=== PATIENT | male | born 1970 | race Caucasian/White ===

== ENCOUNTER 2022-03-23 11:14 | Inpatient (IN) | payer MEDICAID ==
[~2022-03-23] VITALS: Ht 175.3 cm; Wt 79.3 kg
[2022-03-23] MEDS ORDERED: PHENY100 PO (11:29)
[2022-03-23] MEDS ORDERED: CARB100 PO (11:29)
[2022-03-23] MEDS ORDERED: GABA-1216 PO (11:29)
[2022-03-23 11:48] LABS: BASOPHILS % (AUTO) 0.2 % (0.0-2.0); EOSINOPHILS % (AUTO) 0.1 % (1.0-6.0); HEMATOCRIT 39.8 % (41-53); HEMOGLOBIN 13.4 g/dL (13.5-17.5); LYMPHOCYTES # (AUTO) 0.6 K/uL (1.0-4.8); MEAN CORPUSCULAR HEMOGLOBIN 28.4 pg (26.0-34.0); MEAN CORPUSCULAR HGB CONC 33.7 G/dL (31.0-37.0); MEAN CORPUSCULAR VOLUME 84 fL (80-100); MONOCYTES # (AUTO) 0.5 K/uL (0.1-1.0); MONOCYTES % (AUTO) 4.7 % (2.0-9.0); NEUTROPHILS # (AUTO) 9.4 K/uL (1.8-7.7); PLATELET COUNT (AUTO) 211 K/uL (150-450); RED BLOOD CELL COUNT(AUTO) 4.72 MIL/uL (4.50-5.90); RED CELL DISTRIBUTION WIDTH 13.6 % (11.5-14.5)
[2022-03-23 11:59] LABS: ANION GAP 10 mmol/L (8-16); CALCIUM, TOTAL 8.4 mg/dL (8.8-10.5); CARBON DIOXIDE 27 mmol/L (22-29); CHLORIDE 98 mmol/L (98-107); CREATININE 0.93 mg/dL (0.60-1.30); GLOMERULAR FILTR. RATE CALC > 60 mL/min (>60); GLUCOSE,RANDOM 103 mg/dL (70-110); POTASSIUM 3.9 mmol/L (3.5-5.1); SODIUM SERUM 135 mmol/L (136-145); UREA NITROGEN, BLOOD 11 mg/dL (7-18)
[2022-03-23 12:04] LABS: ALANINE AMINOTRANSFERASE 31 U/L (12-78); ALBUMIN 3.7 g/dL (3.4-5.0); ALKALINE PHOSPHATASE 95 U/L (46-116); ASPARTATE AMINOTRANSFERASE 39 U/L (15-37); BILIRUBIN,TOTAL 0.3 mg/dL (0.1-1.0); PHENYTOIN (DILANTIN) 16.2 mcg/mL (10.0-20.0); TOTAL PROTEIN, SERUM 7.7 g/dL (6.4-8.2)
[2022-03-23] MEDS ORDERED: MIDAZOLAM HCL 5 MG/ML VIAL ONE (12:05)
[2022-03-23 12:06] LABS: CARBAMAZEPINE (TEGRETOL) < 0.5 mcg/mL (4.0-12.0)
[2022-03-23] MEDS ORDERED: PHENYTOIN SODIUM 1,000 MG in SODIUM CHLORIDE 0.9% 150 ML IV ONE (12:15)
[2022-03-23] MEDS ORDERED: MIDAZOLAM HCL 2 MG/2 ML VIAL IVP ONE (12:15)
[2022-03-23] MEDS ORDERED: CarBAMazepine 200 MG ER TABLET PO ONE (13:00)
[2022-03-23] MEDS ORDERED: SODIUM CHLORIDE 0.9% 1,000 ML IV ONE (15:45)
[2022-03-23] MEDS ORDERED: ALBUTEROL SULFATE 2.5 MG/0.5 ML NEB SOLUTION NEB ONE (15:45)
[2022-03-23] MEDS ORDERED: IPRATROPIUM BROMIDE 0.5 MG/2.5 ML NEB SOLUTION NEB ONE (15:45)
[2022-03-23 16:35] LABS: COVID AG,FIA SOURCE NASAL SWAB
[2022-03-23] MEDS ORDERED: SODIUM CHLORIDE 0.9% 100 ML ONE (17:48)
[2022-03-23] MEDS ORDERED: IOHEXOL 350 MG/ML 100 ML VIAL ONE (17:48)
[2022-03-23 21:49] VITALS: BP 113/73
[2022-03-23 23:50] VITALS: BP 119/70
[2022-03-24 03:46] VITALS: BP 127/73
[2022-03-24 07:24] VITALS: BP 109/69
[2022-03-24 11:38] VITALS: BP 108/67
[2022-03-24] MEDS ORDERED: ONDANSETRON HCL 4 MG/2 ML VIAL IVP PRN (12:30)
[2022-03-24] MEDS ORDERED: IPRATROPIUM BROMIDE 0.5 MG/2.5 ML NEB SOLUTION NEB PRN (12:30)
[2022-03-24] MEDS ORDERED: ALBUTEROL SULFATE 2.5 MG/0.5 ML NEB SOLUTION NEB PRN (12:30)
[2022-03-24] MEDS ORDERED: MAGNESIUM HYDROXIDE SUSPENSION 30 ML UDCUP PO PRN (12:30)
[2022-03-24] MEDS ORDERED: MORPHINE SULFATE 2 MG/ML SYRINGE IVP PRN (12:30)
[2022-03-24] MEDS ORDERED: BISACODYL 10 MG RECTAL RECTAL SUPPOSITORY PR PRN (12:30)
[2022-03-24] MEDS ORDERED: ZOLPIDEM TARTRATE 5 MG TABLET PO PRN (12:30)
[2022-03-24] MEDS ORDERED: SODIUM CHLORIDE 0.9% 100 ML ONE (12:43)
[2022-03-24] MEDS ORDERED: IOHEXOL 350 MG/ML 100 ML VIAL ONE (12:43)
[2022-03-24] MEDS: CarBAMazepine 200 MG TABLET PO SCH ×2 (13:31→20:20)
[2022-03-24] MEDS: HEPARIN SODIUM,PORCINE 5,000 UNITS/ML VIAL SQ SCH ×2 (15:14→23:49)
[2022-03-24] MEDS: PHENYTOIN SODIUM 100 MG ER CAPSULE PO SCH ×2 (15:14→20:20)
[2022-03-24 15:46] VITALS: BP 122/62
[2022-03-24 19:53] VITALS: BP 116/64
[2022-03-24] MEDS: DOCUSATE SODIUM 100 MG CAPSULE PO SCH (20:20)
[2022-03-25] VITALS (7 sets, daily range): BP systolic 99–134; BP diastolic 60–82
[2022-03-25] MEDS: HEPARIN SODIUM,PORCINE 5,000 UNITS/ML VIAL SQ SCH ×2 (08:28→15:32)
[2022-03-25] MEDS: DOCUSATE SODIUM 100 MG CAPSULE PO SCH ×2 (08:28→21:08)
[2022-03-25] MEDS: CarBAMazepine 200 MG TABLET PO SCH ×2 (08:28→21:08)
[2022-03-25] MEDS: GABAPENTIN 100 MG CAPSULE PO SCH (08:28)
[2022-03-25] MEDS: PHENYTOIN SODIUM 100 MG ER CAPSULE PO SCH ×3 (08:28→21:08)
[2022-03-25] MEDS: ACETAMINOPHEN 325 MG TABLET PO PRN (08:28)
[2022-03-25] MEDS: PANTOPRAZOLE SODIUM 40 MG/VIAL IVP SCH (08:29)
[2022-03-26 04:42] VITALS: BP 121/78
[2022-03-26 07:18] VITALS: BP 131/79
[2022-03-26] MEDS: PANTOPRAZOLE SODIUM 40 MG/VIAL IVP SCH (07:56)
[2022-03-26] MEDS: GABAPENTIN 100 MG CAPSULE PO SCH (08:05)
[2022-03-26] MEDS: DOCUSATE SODIUM 100 MG CAPSULE PO SCH ×2 (08:05→20:57)
[2022-03-26] MEDS: PHENYTOIN SODIUM 100 MG ER CAPSULE PO SCH ×3 (08:05→20:57)
[2022-03-26] MEDS: HEPARIN SODIUM,PORCINE 5,000 UNITS/ML VIAL SQ SCH ×3 (08:05→16:31)
[2022-03-26] MEDS: CarBAMazepine 200 MG TABLET PO SCH ×2 (08:05→20:57)
[2022-03-26 11:09] VITALS: BP 124/73
[2022-03-26 15:31] VITALS: BP 126/79
[2022-03-26 20:15] VITALS: BP 110/74
[2022-03-26] MEDS: ACETAMINOPHEN 325 MG TABLET PO PRN (20:57)
[2022-03-27 00:10] VITALS: BP 118/78
[2022-03-27] MEDS: ACETAMINOPHEN 325 MG TABLET PO PRN ×2 (00:59→04:43)
[2022-03-27] MEDS: HEPARIN SODIUM,PORCINE 5,000 UNITS/ML VIAL SQ SCH ×3 (01:00→16:39)
[2022-03-27 03:30] VITALS: BP 120/75
[2022-03-27] MEDS: DOCUSATE SODIUM 100 MG CAPSULE PO SCH ×2 (07:23→20:08)
[2022-03-27] MEDS: CarBAMazepine 200 MG TABLET PO SCH ×2 (07:23→20:08)
[2022-03-27] MEDS: HYDROCODONE/ACETAMINOPHEN 5-325 MG TABLET PO PRN ×3 (07:23→20:08)
[2022-03-27] MEDS: PANTOPRAZOLE SODIUM 40 MG/VIAL IVP SCH (07:23)
[2022-03-27] MEDS: GABAPENTIN 100 MG CAPSULE PO SCH (07:23)
[2022-03-27] MEDS: PHENYTOIN SODIUM 100 MG ER CAPSULE PO SCH ×3 (07:23→20:08)
[2022-03-27 11:22] VITALS: BP 109/66
[2022-03-27 15:29] VITALS: BP 108/73
[2022-03-27 20:19] VITALS: BP 109/79
[2022-03-28 00:11] VITALS: BP 119/79
[2022-03-28] MEDS: HEPARIN SODIUM,PORCINE 5,000 UNITS/ML VIAL SQ SCH ×2 (00:52→08:23)
[2022-03-28 04:16] VITALS: BP 128/78
[2022-03-28 07:17] VITALS: BP 117/66
[2022-03-28] MEDS: CarBAMazepine 200 MG TABLET PO SCH (08:22)
[2022-03-28] MEDS: GABAPENTIN 100 MG CAPSULE PO SCH (08:23)
[2022-03-28] MEDS: PHENYTOIN SODIUM 100 MG ER CAPSULE PO SCH (08:23)
[2022-03-28] MEDS: DOCUSATE SODIUM 100 MG CAPSULE PO SCH (08:23)
[2022-03-28] MEDS: PANTOPRAZOLE SODIUM 40 MG/VIAL IVP SCH (08:23)
[2022-03-28] MEDS: ACETAMINOPHEN 325 MG TABLET PO PRN (08:23)
== END 2022-03-28 10:30 | disposition home or self-care (01) | DRG 53 ==
LOC: EMS 11:16 → 5S 17:40 → EDBD 17:40
PROVIDERS: ADMIT Hospitalist; ATTEND Hospitalist
DX: G40.909 Epilepsy, unspecified, not intractable, without status epilepticus (principal); R09.02 Hypoxemia; Z20.822 Contact with and (suspected) exposure to COVID-19
CPT/HCPCS: 71045; 80053; 80156; 80185; 85025; 85379; 93005; 94060; 94640; 99285; C9113; J1165; J1644; J2250; J7030; J7050; Q9967; 36415-L1; 36415-TC; J7613